=== PATIENT | female | born 1965 | race African-American/Black ===

== ENCOUNTER 2019-09-01 10:57 | Inpatient (IN) | payer OTHER ==
[~2019-09-01] VITALS: Ht 157.5 cm; Wt 72.6 kg
[2019-09-01 11:01] VITALS: BP 182/90
[2019-09-01 11:38] LABS: ABSOLUTE NEUTROPHILS 5.1 thou/uL (1.4-8.2); EOSINOPHILS 1.4 % (0.0-3.0); HEMATOCRIT 35.6 % (37.0-47.0); HEMOGLOBIN 12.3 gm/dL (12.0-15.0); LYMPHOCYTES 27.4 % (24.0-44.0); MCH 32.4 pg (26.0-34.0); MCHC 34.4 g/dL (28.0-37.0); MCV 94.2 fL (80.0-100.0); MONOCYTES 8.1 % (1.0-8.0); PLATELET COUNT 375 thou/uL (150-400); POLYS 62.1 % (36.0-66.0); RBC 3.78 mil/uL (4.20-5.00); RDW 14.4 % (10.5-14.5); WBC 8.2 thou/uL (4.0-11.0)
[2019-09-01 11:58] LABS: ANION GAP 5 mmol/L (7-16); BUN 7 mg/dL (7-18); CALCIUM 8.8 mg/dL (8.5-10.1); CHLORIDE 104 mmol/L (98-107); CO2 31 mmol/L (21-32); CREATININE 0.8 mg/dL (0.6-1.0); GLUCOSE 96 mg/dL (74-106); POTASSIUM 3.2 mmol/L (3.5-5.1); SODIUM 140 mmol/L (136-145)
[2019-09-01 12:03] LABS: ALBUMIN 3.5 g/dL (3.4-5.0); SGOT 19 U/L (15-37); SGPT 19 U/L (30-65); TOTAL BILIRUBIN 0.6 mg/dL (<0.1-1.0); TOTAL PROTEIN 7.8 g/dL (6.4-8.2); TROPONIN-I <0.06 ng/mL (<0.06)
[2019-09-01 12:18] LABS: LIPASE 82 U/L (73-393)
[2019-09-01 14:34] VITALS: BP 185/96
[2019-09-01 14:49] LABS: APTT 26.9 Seconds (24.5-32.8); PROTIME 10.7 Seconds (9.3-11.4)
[2019-09-01] MEDS ORDERED: XARELTO15 MG PO (16:28)
[2019-09-01] MEDS ORDERED: NORCO 5-325 TA1 EAC1 PO (16:29)
--- NOTE | 2019-09-01 18:30 | NUR ---
ATTEMPTED TO CALL REPORT AT THIS TIME. I WAS INFORMED THAT "NOONE CAN TAKE REPORT UNTIL EVENING SHIFT ARRIVES AND ARE NOT HERE YET." I WAS ALSO INFORMED THAT THE CHARGE NURSE IS NOT AVAILABLE. ED CHARGE AFUA WAS NOTIFIED.
--- NOTE | 2019-09-01 18:45 | NUR ---
ATTEMPTED TO CALL AGAIN REPORT AGAIN. I WAS INFORMED STILL NOONE WAS STILL AVAILABLE.
--- NOTE | 2019-09-01 19:05 | NUR ---
ATTEMPTED TO GIVE REPORT. RICHI STATED SOMEONE WOULD CALL ME BACK IN 5 MIN
--- NOTE | 2019-09-01 19:15 | NUR ---
NO CALL RECEIVED FROM 3. VERBAL REPORT GIVEN TO CELESTERN
[2019-09-01 19:24] VITALS: BP 158/80
[2019-09-01 20:20] VITALS: BP 146/87
[2019-09-01 23:59] VITALS: BP 146/83
[2019-09-02] VITALS: BP 146/83
[2019-09-02 01:33] LABS: CALCIUM 8.3 mg/dL (8.5-10.1); CREATININE 0.9 mg/dL (0.6-1.0); MAGNESIUM 2.3 mg/dL (1.8-2.4)
[2019-09-02 01:38] LABS: POTASSIUM 4.3 mmol/L (3.5-5.1)
--- NOTE | 2019-09-02 02:58 | NUR ---
PT IS ALERT AND ORIENTED X4. RECEIVED PT FROM ER TO ROOM 350 AT APPROXIMATELY 2030 PM. VSS TEMPS 99.2-100.1. SATS WNL ON RA. LUNGS ARE CLEAR WITH DIMINSHED BASES. PT C/O LEFT SIDED NONCARDIAC CHEST PAIN. REFUSED MORPHINE OR HYDROCODONE FOR PAIN. SHE STATED IT ONLY HURTS HER WHEN SHE TAKES DEEP BREATHS. TROPONIN IN ER <0.06. PT HAD 10 BTS V-TACH AROUND 2352. PT SLEEPING AT TIME. DENIED PAIN. ASYMPTOMATIC. PARVEZ ROSENBAUM NOTIFIED. STAT LABS ORDERED. K 4.[address] IN ER AWARE OF BORDERLINE SHORT CA INTERVAL AND EKG ABNORMALITES DOCUMENTED IN H&P. CT + PE. PT STARTED ON ANTICOAG. NO S/S BLEEDING NOTED SO FAR. SCDS ON VERONICA LE'S. WILL CONTINUE TO MONIOR PT FOR CHANGES.
[2019-09-02 04:51] VITALS: BP 125/77
--- NOTE | 2019-09-02 06:47 | NUR ---
Pt has been resting quietly. VSS afebrile this am. Denied need for pain medicine. No c/o chest pain this am.
--- NOTE | 2019-09-02 07:44 | EKG ---
[facility] [place] [address] ELECTROCARDIOGRAM REPORT Name: KEYSHA FOYSURENDRA Caballero Room #: 350-P ADM IN M.R.#: [id number] Admission: 09/01/19 Attend Phys: Urmila Mccann Discharge: Date of : 63 Report #: [id number] THIS REPORT FOR: cc: Nito Marquez MD, David A. MD Lundgren,Narayan Vergara MD [facility] ~ THIS REPORT FOR: //name// [facility] ED Test Date: 2019-09-01 Test Time: 11:45:37 Pat Name: THERESE FOY Department: Room: 350 Gender: F Enterprise Software Engineer: JARON : 1965 Requested By: Antelmo Rogers Order Number: [id number] MD: Narayan Lynch Measurements Intervals [place] Rate: 88 P: 66 AK: 114 QRS: 1 QRSD: 90 T: -8 QT: 433 QTc: 524 Interpretive Statements Sinus rhythm Borderline short AK interval Left ventricular hypertrophy Anterior Q waves, possibly due to LVH Borderline T abnormalities Prolonged QT interval No previous ECG available for comparison Electronically Signed On 09-02-2019 7:42:41 CDT by Narayan Lynch [email or web address] <ELECTRONICALLY SIGNED> By: Narayan Lynch MD, [facility] 09/02/19 0742 1145 1145 Narayan Lynch MD, [facility] /EPI
[2019-09-02 08:18] VITALS: BP 151/83
--- NOTE | 2019-09-02 11:41 | NUR ---
INITIAL ASSESSMENT: Consult received. DAI reviewed chart and spoke with nursing and attending physician. Pt is in Enhanced Isolation due to testing positive for COVID-19 prior to admission. Repeat test is pending. Pt may discharge home over the weekend and will be started on Xarelto. DAI placed call to pt's room. No answer. DAI left voice message on pt's cell phone to request call back, so insurance coverage can be checked for Xarelto. Awaiting call back at this time. Per chart, pt is alert/orientated x 4. Pt lives at home. PCP is Dr. Nito Marquez. DAI is following to assist as needed with discharge planning.
--- NOTE | 2019-09-02 16:07 | NUR ---
ASSUMED CARE OF PT AT 0700. PT AOX4 IN NO ACUTE DISTRESS. DENIES NEED FOR ANALGESICS. COMPLAINS ABOUT QUALITY OF FOOD, OTHERWISE VOICING NO COMPLAINTS. UP AD KAEL. STEADY GAIT. COVID19 SWAB POSITIVE. ID CONSULTED. CALLS OUT APPROPRIATELY. WILL CONT TO MONITOR.
[2019-09-02 19:09] VITALS: BP 150/97
[2019-09-02 20:29] VITALS: BP 157/88
--- NOTE | 2019-09-02 22:20 | NUR ---
PT IS ALERT AND ORIENTED X4. BP MODERATELY ELEVATED , LOW GRADE TEMP. SATS WNL. PT HAD 5 BTS OF VTACH. PT ASYMPTOMATIC. DENIED CHEST PAIN. NOTIFIED REGLA ROSENBAUM OF VTACH. SHE DID NOT WANT LABS DRAWN AND SAID TO CONTINUE TO MONITOR PT FOR CHANGES. HRR PRESENTLY. NO S/S BLEEDING NOTED. NO COUGHING NOTED. PT C/O OF SINUS AREA FEELING HOT. NOTIFIED REGLA ROSENBAUM. STARTED PT ON CLARITIN ORDERED. BED DOEN CALL LIGHT IN REACH. INSTRUCTED PT ON FALL PRECAUTIONS.
[2019-09-03 00:06] VITALS: BP 153/80
[2019-09-03 03:46] VITALS: BP 143/77
--- NOTE | 2019-09-03 05:00 | NUR ---
Pt progressing slowly towards d/c goals. VSS Afebrile this am. Lungs clear and unlabored. Pt stated her sinuses feel clearer this am and her eyes burned less. Denied chest pain or SOA. No further episode of v-tach noted so far. No bleeding noted. Will continue to monitor pt for changes. Scds on.
[2019-09-03 08:25] VITALS: BP 137/78
[2019-09-03] MEDS ORDERED: XARELTO20 MG PO (09:00)
[2019-09-03 10:45] VITALS: BP 137/78
--- NOTE | 2019-09-03 16:01 | NUR ---
ASSUMED CARE OF PT AT 0700. PT ALERT AND ORIENTED X4 IN NO ACUTE DISTRESS. ASYMPTOMATIC. DENIES DIARRHEA. D/C ORDERS PENDING. NO CHANGES TO REPORT.
== END 2019-09-03 16:22 | disposition home or self-care (01) | DRG 177 ==
LOC: ER 10:57 → 3W 19:07 → EROBS 19:07 → 3W 20:00
PROVIDERS: Emergency Medicine; Nurse Practitioner; Nurse Practitioner Family; ADMIT Hospitalist
DX: U07.1 COVID-19 (principal); I26.99 Other pulmonary embolism without acute cor pulmonale; J12.89 Other viral pneumonia; J98.11 Atelectasis; I16.0 Hypertensive urgency; Z86.19 Personal history of other infectious and parasitic diseases; Z79.899 Other long term (current) drug therapy; Z79.01 Long term (current) use of anticoagulants
CPT/HCPCS: 10779; 10879